=== PATIENT | female | born 1955 | race Two or more races ===

== ENCOUNTER 2021-06-11 07:29 | Emergency (ER) | payer OTHER ==
[~2021-06-11] VITALS: Ht 152.4 cm; Wt 68.9 kg
[2021-06-11] MEDS ORDERED: PEPCID AC20 MG PO (16:07)
[2021-06-11] MEDS ORDERED: ZOFRAN8 MG PO (16:07)
== END 2021-06-11 16:28 | disposition home or self-care (01) ==
LOC: ER 07:29
DX: R11.10 Vomiting, unspecified (principal)